=== PATIENT | female | born 1990 | race American Indian/Alaskan Native ===

== ENCOUNTER 2017-10-24 05:36 | Inpatient (IN) | payer OTHER ==
[2017-10-24] MEDS ORDERED: PITOCin/NS 20 UNIT/1000ML DRIP 20,000 MILLIUNITS/1,000 ML BAG IV ONE (05:42)
--- NOTE | 2017-10-24 05:53 | Procedure Note ---
OB Delivery Note - Delivery Date of Delivery: 10/24/17 Surgeon: VICTOR HUGO WILLARD Estimated blood loss: 100cc - Vaginal Delivery presentation: vertex Delivery position: OA Intrapartum events: precipitous labor- <3hr Delivery induction: none Delivery monitor: external FHT Route of delivery: Delivery placenta: spontaneous Delivery cord: nuchal cord (Tight and cut on the perineum), 3 umbilical vessels Episiotomy: none Delivery laceration: 1st degree (nonbleeding not repaired) Delivery repair: vicryl Anesthesia: none Delivery comments: Normal spontaneous vaginal delivery over intact perineum, tight nuchal cord cut prior to delivery of head - Infant A at 1 minute: 8 at 5 minutes: 9 Infant Gender: Male (time of delivery 5:44 AM, infant weight 6 lbs. 5 oz. or 2864 g)
--- NOTE | 2017-10-24 05:57 | History and Physical Report ---
History of Present Illness Date of examination: 10/24/17 Date of admission: 10/24/17 05:36 Chief complaint: Precipitous delivery History of present illness: 26-year-old now at ?38+5 weeks presents in active labor, she is unsure of her gestational age but thinks it is either 11/02/17 or 11/04/17. She rapidly progressed to fully dilated and delivered. Patient was a [facility] patient and appears to have been noncompliant with visits. Currently have no records available Mother and in stable condition Past History Past Medical History: no pertinent history Past Surgical History: no surgical history [employer] History: denies: cancer, chlamydia, gonorrhea, hepatitis B, hepatitis C, herpes, HIV, syphilis, trichomonas Social history: single, full code. denies: Lives alone, lives with family, smoking, alcohol abuse, IV drug use - Obstetrical History Expected Date of Delivery: 11/02/17 Actual Gestation: 38 Week(s) 5 Day(s) : 5 Para: 5 Number of Living Children: 5 Review of Systems Constitutional: no weight gain, no fever, no chills, no weakness, no chronic headaches Cardiovascular: no chest pain, no orthopnea, no palpitations, no syncope, no lightheadedness, no shortness of breath, no dyspnea on exertion, no paroxysmal nocturnal dyspnea, no high blood pressure Respiratory: no cough, no cough with sputum, no excessive sputum, no shortness of breath, no dyspnea on exertion Gastrointestinal: no abdominal pain, no nausea, no vomiting, no heartburn Genitourinary: no vaginal bleeding, no leakage of fluid, no pelvic pain - Vital Signs Vital signs: Vital Signs Pulse BP 71 126/93 10/24/17 05:50 10/24/17 05:50 Temp Pulse Resp BP Pulse Ox 71 126/93 10/24/17 05:50 10/24/17 05:50 - Physical Exam Cardiovascular: Regular rate Lungs: Positive: Clear to auscultation, Normal air movement Abdomen: Positive: normal appearance, soft. Negative: distention, tenderness, guarding, rigidity Genitourinary (Female): Positive: normal external genitalia Uterus: Positive: enlarged (firm and well contracted) Extremities: Positive: normal Results All other labs normal. Assessment and Plan PPD# 0 s/p -Doing well P: -Obtain labs including UDS -Routine care -Anticipate discharge in 24-48 hours - Patient Problems (1) Precipitous delivery, delivered (current hospitalization) Current Visit: Yes Status: Acute (2) 38 weeks gestation of Current Visit: Yes Status: Acute
[2017-10-24] MEDS ORDERED: PHENERGAN PR PRN (06:02)
[2017-10-24] MEDS ORDERED: ZOFRAN IV PRN (06:02)
[2017-10-24] MEDS ORDERED: BENADRYL PO PRN (06:02)
[2017-10-24] MEDS ORDERED: SUBLIMAZE ONE (06:02)
[2017-10-24] MEDS ORDERED: LANSINOH TP PRN (06:02)
[2017-10-24] MEDS ORDERED: TYLENOL PO PRN (06:02)
[2017-10-24] MEDS ORDERED: TUCKS PAD TP PRN (06:02)
[2017-10-24] MEDS ORDERED: MILK OF MAGNESIA PO PRN (06:02)
[2017-10-24] MEDS ORDERED: ANUCORT-HC PR PRN (06:02)
[2017-10-24] MEDS ORDERED: DULCOLAX PR PRN (06:02)
[2017-10-24] MEDS ORDERED: PHENERGAN PO PRN (06:02)
[2017-10-24] MEDS ORDERED: SUBLIMAZE IV ONE (06:04)
[2017-10-24] MEDS ORDERED: PITOCin/NS 20 UNIT/1000ML DRIP 20 UNITS/1,000 ML BAG IV SCH (07:00)
[2017-10-24] MEDS ORDERED: SODIUM CHLORIDE FLUSH SYRINGE 10 ML IV NR (07:00)
[2017-10-24] MEDS: MOTRIN PO SCH ×4 (07:45→23:42)
[2017-10-24] MEDS: NORCO 5/325 PO PRN (08:38)
[2017-10-24] MEDS: COLACE PO SCH ×2 (08:39→22:20)
[2017-10-24] MEDS: PRENATAL VITAMIN PO SCH (08:39)
[2017-10-24] MEDS: FEOSOL PO SCH ×2 (08:39→22:20)
[2017-10-24 09:19] LABS: Hematocrit 24.5 % (30.3-42.9); Hemoglobin 7.9 gm/dl (10.1-14.3)
[2017-10-24] MEDS: SENOKOT S PO SCH ×2 (11:49→23:44)
[2017-10-24] MEDS ORDERED: Fluarix Quad 2017-2018(36 MOS+ IM ONE (12:00)
[2017-10-24 18:30] LABS: Hematocrit 27.1 % (30.3-42.9); Hemoglobin 8.8 gm/dl (10.1-14.3)
[2017-10-25] MEDS: MOTRIN PO SCH ×4 (05:15→23:58)
[2017-10-25] MEDS ORDERED: M-M-R II VACCINE SUB-Q ONE (06:02)
[2017-10-25] MEDS ORDERED: BOOSTRIX IM ONE (06:02)
--- NOTE | 2017-10-25 08:33 | Progress Note ---
Assessment and Plan PPD# 1 s/p -Doing well P: -Routine care -Anticipate discharge in 24-48 hours - Patient Problems (1) Precipitous delivery, delivered (current hospitalization) Current Visit: Yes Status: Acute (2) 38 weeks gestation of Current Visit: Yes Status: Acute Subjective - Subjective Date of service: 10/25/17 Principal diagnosis: PPD# 1 Interval history: Seen and examined, stable doing well. No issues overnight Patient reports: appetite normal, voiding normally, pain well controlled, flatus , ambulating normally, no dizzy ambulation, no nauseated [place]: doing well Objective - Vital Signs Latest vital signs: Vital Signs Temp Pulse Resp BP Pulse Ox 10/25/17 05:15 18 10/24/17 23:50 98.3 F 86 18 101/60 96 Intake and Output 10/24/17 10/25/17 10/25/17 23:59 07:59 15:59 Intake Total 360 Balance 360 Intake: Oral 360 Other: Total, Intake Amount 360 # Voids Void 1 - Exam Abdomen: Present: normal appearance, soft. Absent: distention, tenderness, guarding, rigidity - Labs Labs: Abnormal lab results 10/24/17 10/24/17 Range/Units 05:50 17:58 Hgb 7.9 L 8.8 L (10.1-14.3) gm/dl Hct 24.5 L 27.1 L (30.3-42.9) %
--- NOTE | 2017-10-25 08:34 | Discharge Summary ---
Providers - Providers Date of Admission: 10/24/17 05:36 Date of discharge: 10/26/17 Attending physician: VICTOR HUGO WILLARD Primary care physician: VICTOR HUGO WILLARD Hospitalization Reason for admission: active labor, IUP at term Delivery: Episiotomy: none Laceration: 1st degree (not repaired) Other procedures: none complications: none Discharge diagnosis: IUP at term delivered baby: male Hospital course: Uncomplicated course Condition at discharge: Good Disposition: DC-30 STILL A PATIENT - Discharge Diagnoses (1) Precipitous delivery, delivered (current hospitalization) Status: Acute (2) 38 weeks gestation of Status: Acute Plan - Discharge Medications Prescriptions: HYDROcodone/ACETAMINOPHEN [[place] 5-325 Tablet] 1 each PO Q6HR PRN #7 tablet PRN Reason: Analgesia Ibuprofen [Motrin 600 MG tab] 600 mg PO Q8H PRN #30 tablet PRN Reason: Pain Multivitamin with Iron [Multivitamins with Iron] 1 each PO DAILY #30 tablet - Provider Discharge Summary Activity: no sex for 6 weeks, no heavy lifting 4 weeks, no strenuous exercise Diet: routine Additional instructions: [] Smoking cessation referral if applicable(refer to patient education folder for contact #) [] Refer to [facility]'s [facility] Booklet Call your doctor immediately for: * Fever > 100.5 * Heavy vaginal bleeding ( >1 pad per hour) * Severe persistent headache * Shortness of breath * Reddened, hot, painful area to leg or breast * Drainage or odor from incision. * Keep incision clean and dry at all times and follow doctor's instructions regarding bathing/showering - Follow up plan Follow up: VICTOR HUGO WILLARD MD [Primary Care Provider] - 6 Weeks
[2017-10-25] MEDS: COLACE PO SCH ×2 (10:45→23:58)
[2017-10-25] MEDS: FEOSOL PO SCH ×2 (10:45→23:59)
[2017-10-25] MEDS: PRENATAL VITAMIN PO SCH (10:45)
[2017-10-25] MEDS: NORCO 5/325 PO PRN (15:58)
[2017-10-26] MEDS: MOTRIN PO SCH (05:48)
[2017-10-26] MEDS: FEOSOL PO SCH (11:02)
[2017-10-26] MEDS: PRENATAL VITAMIN PO SCH (11:02)
[2017-10-26] MEDS: COLACE PO SCH (11:02)
[2017-10-26] MEDS: NORCO 5/325 PO PRN (11:05)
[2017-10-26] MEDS ORDERED: M-M-R II VACCINE SUB-Q ONE (12:00)
[2017-10-26 14:11] VITALS: BP 127/71
== END 2017-10-26 13:10 | disposition home or self-care (01) | DRG 775 ==
LOC: LD 05:36 → OB 08:11
PROVIDERS: ADMIT Obstetrics & Gynecology Gynecology; ATTEND Obstetrics & Gynecology Gynecology
PROC: 10E0XZZ Delivery of Products of Conception, External Approach (ICD-10-PCS; principal; 2017-10-24)
PROC: 3E0234Z Introduction of Serum, Toxoid and Vaccine into Muscle, Percutaneous Approach (ICD-10-PCS; 2017-10-24)
DX: O69.1XX0 Labor and delivery complicated by cord around neck, with compression, not applicable or unspecified (principal); Z3A.38 38 weeks gestation of pregnancy; Z37.0 Single live birth; Z23 Encounter for immunization; O62.3 Precipitate labor; O70.0 First degree perineal laceration during delivery
CPT/HCPCS: 36415; 85014; 85018; 90471; 90686; 90707; 90715; 99211; A6250; G0008; G0463; J2590; J3010

== ENCOUNTER 2018-11-13 15:47 | Emergency (ER) | payer OTHER ==
--- NOTE | 2018-11-13 17:10 | Emergency Department Report ---
Chief Complaint: Urogenital-Female Stated Complaint: UTI/PAIN Time Seen by Provider: 11/13/18 17:05 - HPI History of Present Illness: Pt presents due to suprapubic pressure for 3 days feels similar to UTI pt states she was treated a couple of weeks ago but stopped taking the medication due to it making her nauseous x4 days no vaginal discharge, fever, N/V no PMHx, no PSHx unsure LNMP MSE complete MSE screening note: Focused history and physical exam performed. Due to findings the following was ordered: UA, urine preg ED Disposition for MSE Condition: Stable
[2018-11-13 17:48] LABS: Bacteria,Urine 1+ /HPF (Negative); Bilirubin,Urine NEG (Negative); Blood,Urine NEG (Negative); Color,Urine Yellow (Yellow); Mucus,Urine 3+ /HPF; Protein,Urine <15 mg/dL mg/dL (Negative); Urobilinogen,Urine < 2.0 mg/dL (<2.0)
[2018-11-13 17:49] LABS: HCG Qualitative,Urine Negative (Negative)
--- NOTE | 2018-11-13 18:19 | Emergency Department Report ---
ED Dysuria HPI - HPI Chief Complaint: Urogenital-Female Stated Complaint: UTI/PAIN Time Seen by Provider: 11/13/18 17:05 Duration: 2 Days Location of Discomfort: Suprapubic Severity: Mild Symptoms: Dysuria: Yes, Frequency: Yes, Suprapubic Pain: Yes, Flank Pain: No, Fever: No, Hematuria: No, Abdominal Pain: No, Previous UTI's: Yes Other History: She denies any vaginal discharge or any concern for an STD. Reports no fever, chills, sweats or flank pain. She denies any trauma. No possibility of ED Review of Systems ROS: Stated complaint: UTI/PAIN Other details as noted in HPI Constitutional: denies: chills, fever Eyes: denies: eye pain, eye discharge, vision change ENT: denies: ear pain, throat pain Respiratory: denies: cough, shortness of breath, wheezing Cardiovascular: denies: chest pain, palpitations Endocrine: no symptoms reported Gastrointestinal: denies: abdominal pain, nausea, diarrhea Genitourinary: dysuria, frequency. denies: urgency, discharge Musculoskeletal: denies: back pain, joint swelling, arthralgia Skin: denies: rash, lesions Neurological: denies: headache, weakness, paresthesias Psychiatric: denies: anxiety, depression Hematological/Lymphatic: denies: easy bleeding, easy bruising ED Past Medical Hx - Past Medical History Previous Medical History?: Yes Hx Hypertension: No Hx CVA: No Hx Heart Attack/AMI: No Hx Congestive Heart Failure: No Hx Diabetes: No Hx Deep Vein Thrombosis: No Hx Pulmonary Embolism: No Hx GERD: No Hx Liver Disease: No Hx Renal Disease: No Hx of Cancer: No Hx Sickle Cell Disease: No Hx Arthritis: No Hx Headaches / Migraines: No Hx Seizures: No Hx Kidney Stones: No Hx Psychiatric Treatment: No Hx Asthma: No Hx COPD: No Hx Tuberculosis: No Hx Dementia: No Hx HIV: No - Surgical History Past Surgical History?: No Hx Coronary Stent: No Hx Open Heart Surgery: No Hx Pacemaker: No Hx Internal Defibrillator: No Hx Cholecystectomy: No Hx Appendectomy: No Hx Breast Surgery: No - Social History Smoking Status: Never Smoker Substance Use Type: None - Medications Home Medications: Home Medications Medication Instructions Recorded Confirmed Last Taken Type HYDROcodone/ACETAMINOPHEN [[place] 1 each PO Q6HR PRN #7 tablet 10/24/17 Unknown Rx 5-325 Tablet] Ibuprofen [Motrin 600 MG tab] 600 mg PO Q8H PRN #30 tablet 10/24/17 Unknown Rx Multivitamin with Iron 1 each PO DAILY #30 tablet 10/24/17 Unknown Rx [Multivitamins with Iron] Ciprofloxacin HCl [Cipro] 500 mg PO BID #20 tablet 11/13/18 Unknown Rx Phenazopyridine [Pyridium] 200 mg PO TID #9 tab 11/13/18 Unknown Rx Dysuria Exam - Exam General: Vital signs noted. No distress. Alert and acting appropriately. Lungs: Clear to auscultation. Heart is regular rate and rhythm. No murmurs, rubs or gallops Exam: Yes Moist Mucous Membranes, Yes Abdominal Tenderness (2. Suprapubic suprapubic region with palpation), No CVA Tenderness, No Rigidity or Guarding Labs: Lab Results 11/13/18 Range/Units 17:21 Urine Color Yellow (Yellow) Urine Turbidity Slightly-cloudy (Clear) Urine pH 5.0 (5.0-7.0) Ur Specific [place] 1.027 (1.003-1.030) Urine Protein <15 mg/dl (Negative) mg/dL Urine Glucose (UA) Neg (Negative) mg/dL Urine Ketones Neg (Negative) mg/dL Urine Blood Neg (Negative) Urine Nitrite Neg (Negative) Urine Bilirubin Neg (Negative) Urine Urobilinogen < 2.0 (<2.0) mg/dL Ur Leukocyte Esterase Tr (Negative) Urine WBC (Auto) 4.0 (0.0-6.0) /HPF Urine RBC (Auto) 1.0 (0.0-6.0) /HPF U Epithel Cells (Auto) 17.0 H (0-13.0) /HPF Urine Bacteria (Auto) 1+ (Negative) /HPF Urine Mucus 3+ /HPF Urine HCG, Qual Negative (Negative) ED Course Vital Signs 11/13/18 17:05 Temperature 97.7 F Pulse Rate 99 H Respiratory 187 H Rate Blood Pressure 102/65 Blood Pressure 102/65 [Right] O2 Sat by Pulse 100 Oximetry ED Medical Decision Making - Medical Decision Making Respiratory rate is 16 not 187 Critical care attestation.: If time is entered above; I have spent that time in minutes in the direct care of this critically ill patient, excluding procedure time. ED Disposition Clinical Impression: Dysuria Disposition: DC-01 TO HOME OR SELFCARE Is pt being admited?: No Does the pt Need Aspirin: No Condition: Stable Instructions: Phenazopyridine (By mouth), Urinary Tract Infection in Women (ED) Referrals: ALEX BROWN MD [Primary Care Provider] - 3-5 Days
[2018-11-13 18:51] VITALS: BP 106/61
== END 2018-11-13 18:50 | disposition home or self-care (01) ==
LOC: ED 15:47
DX: R30.0 Dysuria (principal)
CPT/HCPCS: 81001; 81025; 99283